=== PATIENT | female | born 1950 | race Caucasian/White ===

== ENCOUNTER 2021-09-05 10:57 | Emergency (ER) | payer MEDICARE ==
[2021-09-05 11:58] LABS: BILIRUBIN NEGATIVE (NEGATIVE); BLOOD NEGATIVE Ery/uL (NEGATIVE); CLARITY CLEAR (CLEAR); COLOR YELLOW (YELLOW); GLUCOSE (U) NORMAL (NORMAL); LEUKOCYTES NEGATIVE Leu/uL (NEGATIVE); NITRITE NEGATIVE (NEGATIVE); PROTEIN NEGATIVE (NEGATIVE); UROBILINOGEN 0.2 mg/dL (0.2-1.0)
[2021-09-05 12:02] LABS: BASOPHIL 0.4 % (0-2); HCT 38.7 % (37.0-47.0); LYMPHOCYTE 8.9 % (15-48); MCH 29.4 pg (25.0-31.0); MCHC 33.6 g/dL (32.0-36.0); MCV 87.6 fL (78.0-100.0); MONOCYTE 9.4 % (0-12); MPV 11.3 fL (6.0-9.5); NEUTROPHIL 78.8 % (41-80); NRBC 0; PLT 241 K/uL (150-400); RBC 4.42 M/uL (4.20-5.40); RDW 11.8 % (11.5-14.0); WBC 10.7 K/uL (4.0-10.5)
[2021-09-05 12:31] LABS: ALBUMIN 3.4 g/dL (3.4-5.0); BILIRUBIN - TOTAL 0.7 mg/dL (0.2-1.0); BUN/CREAT RATIO (CALC) 18.6 RATIO; CREATININE 0.59 mg/dL (0.51-0.95); GLOBULIN (CALCULATION) 3.6 g/dL; MAGNESIUM 1.6 mg/dL (1.8-2.4); POTASSIUM 3.4 mmol/L (3.5-5.1)
[2021-09-05 12:37] LABS: INR 1.17 (0.9-1.2); PROTHROMBIN TIME 14.3 SECONDS (11.8-13.4); PTT 29.2 SECONDS (24.4-34.7)
[2021-09-05 12:46] LABS: LACTIC ACID 2.1 mmol/L (0.4-1.9)
[2021-09-05 13:04] LABS: CORONAVIRUS 2019 SARS-COV-2 NEGATIVE (NEGATIVE); INFLUENZA A NAA NEGATIVE (NEGATIVE)
== END 2021-09-05 17:54 | disposition other institution (70) ==
LOC: FER 10:57
PROVIDERS: Emergency Medicine
DX: C25.9 Malignant neoplasm of pancreas, unspecified (principal); E11.9 Type 2 diabetes mellitus without complications; Z87.891 Personal history of nicotine dependence; Z79.84 Long term (current) use of oral hypoglycemic drugs; Z20.822 Contact with and (suspected) exposure to COVID-19; Z28.311 Partially vaccinated for COVID-19
CPT/HCPCS: 36415; 71045; 72131; 80053; 81003; 83605; 83690; 83735; 85025; 85610; 85730; 93005; J1170; J2270; J7030; Q9967; U0002